=== PATIENT | female | born 1970 | race Caucasian/White ===

== ENCOUNTER 2017-01-28 05:27 | Day surgery (SDC) | payer OTHER ==
[2017-01-26 11:37] LABS: EOSINOPHILS 2.5 % (0-7); HEMATOCRIT 36.9 % (36.0-48.0); HEMOGLOBIN 12.7 g/dL (12-16); IMMATURE GRANULOCYTES 0.4 % (0-5); LYMPHOCYTES 27.5 % (15-50); MCH 32.5 pg (26.0-34.0); MCHC 34.4 g/dL (31.0-37.0); MCV 94.4 fL (80.0-100.0); MEAN PLATELET VOLUME 9.2 fL (7.4-10.4); MONOCYTES 9.8 % (2-11); NEUTROPHILS 58.8 % (40-80); PLATELET COUNT 284 10x3/uL (130-400); RBC 3.91 10x6/uL (4.00-5.40); RDW 12.5 % (11.5-14.5); WBC 5.2 10x3/uL (4.8-10.8)
[2017-01-26 11:50] LABS: CALC OSMOLALITY 279 mosm/kg (275-300); CALCIUM 8.5 mg/dL (8.5-10.1); CARBON DIOXIDE 29.2 mmol/L (21.0-32.0); CHLORIDE - SERUM 105 mmol/L (98-107); CREATININE - SERUM 0.8 mg/dL (0.6-1.3); GLUCOSE 97 mg/dL (74-106); POTASSIUM - SERUM 4.5 mmol/L (3.5-5.1); SODIUM 140 mmol/L (136-145); UREA NITROGEN 16 mg/dL (7-18); eGFR NON AFRICAN AMERICAN 82 mL/min (90-120)
[~2017-01-28] VITALS: Ht 172.7 cm; Wt 91.2 kg
[~2017-01-28 05:27] MED LIST: ALPHAGAN 0.2%5 ML EACH EYE; BONTRIL SLOW-R105 MG PO; BUTALB-APAP-CA1 EACH PO; CLARITIN 10 MG10 MG PO; CYMBALTA60 MG PO; FLUTICASONE PRO16 GM NASAL; GINKGO BILOBA120 MG PO; MAG-OX 400 MG400 MG PO; NAPROSYN500 MG PO; SUPER B COMPLE150 MG PO; VITAMIN D31000 UNI2 PO
[2017-01-28 05:53] LABS: HCG URINE NEGATIVE (NEGATIVE)
[2017-01-28 05:54] VITALS: BP 110/63; Ht 172.7 cm; Wt 91.2 kg
[2017-01-28] MEDS ORDERED: HYDROCODON-ACE1 EAC7 PO (09:22)
[2017-01-28] MEDS ORDERED: MOTRIN600 MG PO (09:22)
--- NOTE | 2017-01-28 11:42 | NUR ---
HAS BEEN UNABLE TO VOID. [facility] GIVEN PER REQUEST FOR PAIN.
--- NOTE | 2017-01-28 12:00 | NUR ---
STATES PAIN LEVEL IS DOWN TO A 3. VOIDED. NO VAGINAL BLEEDING NOTED. DISCHARGED HOME VIA WC.
== END 2017-01-28 12:00 | disposition home or self-care (01) ==
LOC: D.OPS 05:27 → D.PAN 07:30 → EDBD 07:30 → D.OPS 07:30
PROVIDERS: Obstetrics & Gynecology
DX: N80.3 Endometriosis of pelvic peritoneum (principal); N83.02 Follicular cyst of left ovary; F32.9 Major depressive disorder, single episode, unspecified; F41.9 Anxiety disorder, unspecified; Z79.1 Long term (current) use of non-steroidal anti-inflammatories (NSAID); Z79.899 Other long term (current) drug therapy; Z01.812 Encounter for preprocedural laboratory examination